=== PATIENT | female | born 1975 | race Two or more races ===

== ENCOUNTER 2020-04-27 10:10 | Emergency (ER) | payer OTHER ==
[2020-04-27 10:14] VITALS: BMI 26.6
--- NOTE | 2020-04-27 10:25 | PDOC ---
History of Present Illness - General Chief Complaint: Pain, Acute Stated Complaint: BACK PAIN Time Seen by Provider: 04/27/20 10:24 History Source: Patient Exam Limitations: No Limitations - History of Present Illness Initial Comments: 04/27/20 10:46 [id number] w PMhx prediabetes presenting w sudden onset intermittent severe R CVA pain radiating to RLQ at 11pm last night lying in bed. Fam hx of renal stones. Denies fever, n/v, ABD pain, dysuria, bowel mvmt changes. Past History - Medical History Allergies/Adverse Reactions: Allergies Allergy/AdvReac Type Severity Reaction Status Date / Time No Known Allergies Allergy Verified 04/27/20 10:12 Home Medications: Ambulatory Orders Acetaminophen [Tylenol] 650 mg PO QID 04/27/20 Tamsulosin HCl [Flomax] 0.4 mg PO DAILY 30 Days #30 cap.er.24h 04/27/20 - Psycho-Social/Smoking History Smoking History: Never smoked - Substance Abuse Hx (Audit-C & DAST Scrn) How often the patient has a drink containing alcohol: Never Score: In Men: 4 or > Positive; In Women: 3 or > Positive: 0 Screen Result (Pos requires Nsg. Audit-10AR): Negative In the last yr the pt used illegal drug/Rx for NonMed reason: No Score: Yes response is considered Positive: 0 Screen Result (Positive result requires Nsg. DAST-10): Negative Review of Systems - Review of Systems Constitutional: No: Chills, Fever HEENTM: No: Eye Pain, Nose Congestion Respiratory: No: Cough, Shortness of Breath Cardiac (ROS): No: Chest Pain, Palpitations ABD/GI: No: Constipated, Diarrhea, Nausea, Vomiting : No: Burning, Dysuria Musculoskeletal: Yes: Back Pain. No: Joint Pain Integumentary: No: Bruising, Flushing Neurological: No: Headache, Seizure Psychiatric: No: Anxiety, Depression Endocrine: No: Intolerance to Cold, Intolerance to Heat Hematologic/Lymphatic: No: Anemia, Blood Clots *Physical Exam - Vital Signs Last Vital Signs Temp Pulse Resp BP Pulse Ox 98.1 F 92 H 18 130/79 99 04/27/20 10:13 04/27/20 10:13 04/27/20 10:13 04/27/20 10:13 04/27/20 10:13 - Physical Exam General Appearance: Yes: Nourished, Appropriately Dressed, Mild Distress HEENT: positive: EOMI, IRASEMA, Normal Voice, Hearing Grossly Normal. negative: Scleral Icterus (R), Scleral Icterus (L) Respiratory/Chest: positive: Lungs Clear, Normal Breath Sounds. negative: Chest Tender, Respiratory Distress Cardiovascular: positive: Regular Rhythm, Regular Rate, S1, S2. negative: Edema, Murmur Gastrointestinal/Abdominal: positive: Normal Bowel Sounds, Tender (RLQ), Flat, Soft. negative: Organomegaly Musculoskeletal: positive: CVA Tenderness (R). negative: CVA Tenderness (L) Integumentary: positive: Normal Color, Warm Neurologic: positive: Fully Oriented, Alert, Normal Mood/Affect, Normal Response ED Treatment Course - LABORATORY CBC & Chemistry Diagram: 04/27/20 11:22 04/27/20 11:22 Medical Decision Making - Medical Decision Making 04/27/20 13:15 CT A/P - 5mm R UVJ calculus w mild hydro TVUS - thickened endometrium, small R ovarian cyst --- Has 5mm R calculus. No evidence of UTI Given tylenol, toradol, zofran DC home w urology f/u, flomax, supportive care, percocet Discharge - Discharge Information Problems reviewed: Yes Clinical Impression/Diagnosis: Nephrolithiasis Condition: Improved Disposition: HOME - Additional Discharge Information Prescriptions: Tamsulosin HCl [Flomax] 0.4 mg PO DAILY 30 Days #30 cap.er.24h - Follow up/Referral Referrals: Mina Hernandez MD [Primary Care Provider] - Balta Smith MD [Staff Physician] - - Patient Discharge Instructions Patient Printed Discharge Instructions: DI for Kidney Stones Additional Instructions: You have a kidney stone. You will eventually urinate it out Take ibuprofen or tylenol for pain Take the prescribed Flomax until you pass the stone Take the prescribed Percocet if you have severe pain Drink lots of water Follow up with the referred urologist Dr Smith --- Print Language: ETHIOPIAN - Post Discharge Activity
[2020-04-27] MEDS ORDERED: SODIUM CHLORIDE 0.9% 500 ML INFUS.BAG IV ONE (10:45)
[2020-04-27] MEDS ORDERED: ACETAMINOPHEN 1000 MG/100 ML VIAL (NON FORMULARY) IVPB ONE (10:45)
[2020-04-27] MEDS ORDERED: ACETAMINOPHEN INJECTION 100 ML IVPB ONE (10:56)
[2020-04-27 12:24] LABS: BASO % 0.4 % (0-2.0); HEMATOCRIT 35.1 % (32.4-45.2); HEMOGLOBIN 11.3 GM/dL (10.7-15.3); LYMPH % 7.1 % (8-40); MCH 26.5 pg (25.7-33.7); MCHC 32.1 g/dl (32.0-36.0); MEAN CELL VOLUME 82.6 fl (80-96); MEAN PLT VOLUME 9.7 fl (7.5-11.1); MONO % 3.8 % (3.8-10.2); NEUT % 88.7 % (42.8-82.8); PLATELET COUNT 237 K/MM3 (134-434); RBC 4.25 M/mm3 (3.60-5.2); RDW 15.2 % (11.6-15.6); WHITE BLOOD COUNT 10.2 K/mm3 (4.0-10.0)
[2020-04-27 12:31] LABS: EPI CELLS 25 /uL (0-25.1); HYALINE CASTS 2 /uL (0-3.1); PH,URINE 6.5 (5.0-8.0); URINE APPEARANCE CLEAR; URINE BACTERIA 747 /uL (0-1359); URINE BILIRUBIN NEGATIVE (NEGATIVE); URINE COLOR YELLOW; URINE GLUCOSE (UA) NEGATIVE (NEGATIVE); URINE KETONE 1+ (NEGATIVE); URINE LEUK ESTERASE NEGATIVE (NEGATIVE); URINE NITRITE NEGATIVE (NEGATIVE); URINE PROTEIN NEGATIVE (NEGATIVE); URINE RBC 95 /uL (0-23.9); URINE UROBILINOGEN 0.2 mg/dL (0.2-1.0); URINE WBC 8 /uL (0-25.8)
--- NOTE | 2020-04-27 12:41 | PDOC ---
Documentation entered by Kanu Zarate SCRIBE, acting as scribe for Anibal Rosario MD. Anibal Rosario MD: This documentation has been prepared by the scribe, Kanu Zarate SCRIBE, under my direction and personally reviewed by me in its entirety. I confirm that the documentation accurately reflects all work, treatment, procedures, and medical decision making performed by me. Attending Attestation - Resident Resident Name: GarrettTate - ED Attending Attestation I have performed the following: I have examined & evaluated the patient, The case was reviewed & discussed with the resident, I agree w/resident's findings & plan, Exceptions are as noted - HPI HPI: 04/27/20 10:54 The patient is a 44 year old female with a significant past medical history of prediabetes who presents to the emergency department for evaluation of sudden onset of right lower back pain that radiates to the right lower quadrant which began last night while lying down. Patient states that the pain seems to wax and wane and radiate to the right lower quadrant. She denies any dysuria, diarrhea, fever. She endorses chills and nausea that began last night. Patient denies a history of similar symptoms Or history of kidney stones. No changes with food intake. No recent trauma or injuries or falls. The patient denies chest pain and shortness of breath. Denies dysuria, hematuria, vomiting and/or any other GI symptoms. Denies any symptoms. Denies any other symptoms. Allergies: NKDA Family Hx: The patient reports her father had kidney stones. PCP: Dr. Hernandez - Physicial Exam PE: 04/27/20 10:53 GENERAL: The patient is awake, alert, and fully oriented, Nontoxic - in no acute distress. HEAD: Normocephalic, atraumatic. EYES: extraocular movements intact, sclera anicteric, conjunctiva clear. ENT: Normal voice, Moist mucous membranes. NECK: Normal range of motion, supple without lymphadenopathy, JVD, or masses. LUNGS: Breath sounds equal, clear to auscultation bilaterally. No wheezes, no crackles, no rales. HEART: Regular rate and rhythm, normal S1 and S2 without murmur, rub or gallop. ABDOMEN: Soft, nontender, normoactive bowel sounds. No guarding, no rebound. No masses. EXTREMITIES: Normal range of motion, no edema. No clubbing or cyanosis. No cords, erythema, or tenderness. NEUROLOGICAL: No facial asymmetry, Normal speech, normal gait. PSYCH: Normal mood, normal affect. SKIN: Warm, Dry, normal turgor, no rashes or lesions noted - Medical Decision Making 04/27/20 12:40 Differential includes possible kidney stones, versus UTI consider possible appendicitis, Patient's clinical presentation is most consistent with kidney stones, will obtain blood work, UA, will give pain control Will reassess 04/27/20 15:44 CT, UA bacteria however I suspect may be a contaminated specimen. If not a clean catch, Will repeat UA 04/27/20 17:27 repeat UA clean without bacturia will dc with urology fu return precautions were discussed Heart Score/ECG Review - ECG Impressions Comment:: 04/27/20 17:34 ekg dated 04/27/2020 10:17 rate of [address] elevations normal axis Discharge - Discharge Information Problems reviewed: Yes Clinical Impression/Diagnosis: Nephrolithiasis Condition: Improved Disposition: HOME - Additional Discharge Information Prescriptions: Tamsulosin HCl [Flomax] 0.4 mg PO DAILY 30 Days #30 cap.er.24h Ibuprofen 400 mg PO QID #30 tablet Oxycodone HCl/Acetaminophen [Percocet 5-325 mg Tablet -] 1 combo PO Q6H PRN #14 tablet MDD 4 PRN Reason: Pain - Follow up/Referral Referrals: Balta Smith MD [Staff Physician] - Mina Hernandez MD [Primary Care Provider] - - Patient Discharge Instructions Patient Printed Discharge Instructions: DI for Kidney Stones Additional Instructions: You have a kidney stone. You will eventually urinate it out Take ibuprofen or tylenol for pain Take the prescribed Flomax until you pass the stone Take the prescribed Percocet if you have severe pain Drink lots of water Follow up with the referred urologist Dr Smith --- Print Language: TRINIDADIAN - Post Discharge Activity
[2020-04-27 12:49] LABS: ALBUMIN 4.1 g/dl (3.4-5.0); BILIRUBIN,TOTAL 0.4 mg/dL (0.2-1); BLOOD UREA NITROGEN 10.6 mg/dL (7-18); CALCIUM 9.2 mg/dL (8.5-10.1); CREATININE 0.8 mg/dL (0.55-1.3); POTASSIUM 4.3 mmol/L (3.5-5.1); TOT PROT 7.7 g/dl (6.4-8.2)
[2020-04-27] MEDS ORDERED: KETOROLAC TROMETHAMINE 30 MG/1 ML VIAL IVPUSH ONE (15:32)
[2020-04-27] MEDS ORDERED: ONDANSETRON 4 MG/2 ML VIAL IVPUSH ONE (15:32)
[2020-04-27] MEDS ORDERED: ONDANSETRON *ODT* 4 MG TABLET ONE (16:03)
[2020-04-27] MEDS ORDERED: KETOROLAC TROMETHAMINE 30 MG/1 ML VIAL ONE (16:04)
--- NOTE | 2020-04-27 16:25 | EKG ---
Test Reason : Blood Pressure : / mmHG Vent. Rate : 096 BPM Atrial Rate : 096 BPM P-R Int : 150 ms QRS Dur : 132 ms QT Int : 394 ms P-R-T Axes : 070 043 019 degrees QTc Int : 497 ms NORMAL SINUS RHYTHM POSSIBLE LEFT ATRIAL ENLARGEMENT RIGHT BUNDLE BRANCH BLOCK ABNORMAL ECG NO PREVIOUS ECGS AVAILABLE Confirmed by RODOLFO SOLORZANO MD ([id number]) on 04/27/2020 4:24:50 PM Referred By: Confirmed By:RODOLFO SOLORZANO MD
[2020-04-27 16:31] VITALS: BP 128/74; PULSE 83; TEMP 99.1
[2020-04-27 16:55] LABS: EPI CELLS 8 /uL (0-25.1); HYALINE CASTS 1 /uL (0-3.1); PH,URINE 5.5 (5.0-8.0); URINE APPEARANCE CLOUDY; URINE BACTERIA 49 /uL (0-1359); URINE BILIRUBIN NEGATIVE (NEGATIVE); URINE COLOR YELLOW; URINE GLUCOSE (UA) NEGATIVE (NEGATIVE); URINE KETONE 2+ (NEGATIVE); URINE LEUK ESTERASE NEGATIVE (NEGATIVE); URINE NITRITE NEGATIVE (NEGATIVE); URINE PROTEIN NEGATIVE (NEGATIVE); URINE RBC 697 /uL (0-23.9); URINE UROBILINOGEN 0.2 mg/dL (0.2-1.0); URINE WBC 7 /uL (0-25.8)
== END 2020-04-27 17:35 | disposition home or self-care (01) ==
LOC: JER 10:10
PROC: 3E0333Z Introduction of Anti-inflammatory into Peripheral Vein, Percutaneous Approach (ICD-10-PCS; principal; 2020-04-27)
PROC: 3E033GC Introduction of Other Therapeutic Substance into Peripheral Vein, Percutaneous Approach (ICD-10-PCS; 2020-04-27)
DX: N20.0 Calculus of kidney (principal)
CPT/HCPCS: 36415; 74176-TC; 76830-TC; 80053; 81003; 84703; 85025; 87086; 93005; 93010; 99285-25; J0131

== ENCOUNTER 2024-11-24 05:32 | Day surgery (SDC) | payer OTHER ==
[2024-11-19 18:00] VITALS: BMI 25.5
[2024-11-24] MEDS: BUPIVACAINE HCL/PF 0.5% (5 MG/ML) 30 ML VIAL IJ ONE ×2
[2024-11-24] MEDS ORDERED: BUPIVACAINE HCL/PF 0.5% (5MG/ML) 10 ML VIAL ONE (07:12)
[2024-11-24] MEDS ORDERED: ACETAMINOPHEN INJECTION 100 ML ONE (07:35)
[2024-11-24] MEDS ORDERED: DEXMEDETOMIDINE HCL 200 MCG/2 ML IVPB ONE (07:36)
[2024-11-24] MEDS ORDERED: SUCCINYLCHOLINE CHLORIDE 200 MG/10 ML SYRINGE ONE (07:40)
[2024-11-24] MEDS ORDERED: MIDAZOLAM HCL 2 MG/2 ML SINGLE DOSE VIAL ONE (07:40)
[2024-11-24] MEDS ORDERED: oxyCODONE HCL 5 MG TABLET PO PRN (08:04)
[2024-11-24] MEDS ORDERED: ONDANSETRON 4 MG/2 ML VIAL IVPUSH PRN (08:04)
[2024-11-24] MEDS ORDERED: LIDOCAINE HCL/PF 2% SDV 5ML VIAL ONE (08:13)
[2024-11-24] MEDS ORDERED: DEXAMETHASONE SOD PHOSPHATE 4 MG/1 ML VIAL ONE (08:13)
[2024-11-24] MEDS ORDERED: ceFAZolin SODIUM 1 GM VIAL ONE (08:14)
[2024-11-24] MEDS ORDERED: LACTATED RINGERS SOLUTION 1,000 ML IV SCH (08:15)
[2024-11-24] MEDS: ceFAZolin SODIUM 1 GM VIAL IVPB ONE ×2 (08:21)
[2024-11-24] MEDS ORDERED: PROPOFOL 20 ML ONE (08:33)
[2024-11-24] MEDS ORDERED: KETOROLAC TROMETHAMINE 30 MG/1 ML VIAL ONE (08:43)
[2024-11-24] MEDS ORDERED: PHENYLEPHRINE HCL 10 MG/1 ML SINGLE DOSE VIAL ONE (08:46)
[2024-11-24 12:40] VITALS: RESP 18
[2024-11-24 13:47] VITALS: BP 134/78; PULSE 96; TEMP 97.9
== END 2024-11-24 13:40 | disposition home or self-care (01) ==
LOC: JASU-SURG 05:32
PROVIDERS: ATTEND Surgery
PROC: 06DY3ZZ Extraction of Lower Vein, Percutaneous Approach (ICD-10-PCS; principal; 2024-11-24 08:00)
DX: I83.811 Varicose veins of right lower extremity with pain (principal)
CPT/HCPCS: 81025; 94760; J0131